=== PATIENT | female | born 1985 | race Two or more races ===

== ENCOUNTER → 2017-12-15 10:10 | Outpatient (CLI) | payer SELFPAY ==
[2017-12-15 11:11] LABS: Hematocrit 36.4 % (37-47); Hemoglobin 12.2 g/dl (12.0-15.0); Mean Corp Hgb Conc 33.5 g/gl (32-36); Mean Corpuscular Hgb 30.9 pg (27.0-32.0); Mean Corpuscular Volume 92.2 fL (81-99); Mean Platelet Vol. 12.5 fl (6.2-12.0); Platelet Count 195 K/mm3 (150-450); RBC Distribution Width CV 13.3 % (11.6-14.6); RBC Distribution Width SD 44.1 fl (35.1-43.9); Red Blood Count 3.95 M/mm3 (4.2-5.4)
[2017-12-15 11:13] LABS: Scan Indicated on CBC? Y/N NO
[2017-12-15 11:14] LABS: Glucose Challenge Gest 1H 50g 53 mg/dL (70-140)
== END ==
PROVIDERS: Visit Provider Obstetrics & Gynecology
DX: Z34.82 Encounter for supervision of other normal pregnancy, second trimester (principal)
CPT/HCPCS: 36415; 82950; 85027